=== PATIENT | male | born 1940 | race Hispanic/Latino ===

== ENCOUNTER 2017-08-12 09:51 | Day surgery (SDC) | payer MEDICARE, OTHER ==
[2017-08-12] MEDS ORDERED: Lactated Ringer's 1,000 ML IV ONE (10:21)
[2017-08-12 10:41] VITALS: TEMP 97
[2017-08-12] MEDS ORDERED: Propofol 10 mg/ml Inj (20 ML) ONE (11:20)
[2017-08-12 12:08] VITALS: BP 100/50; PULSE 68; RESP 17; O2SAT 98
== END 2017-08-12 12:23 | disposition home or self-care (01) ==
LOC: H.ENDO 09:51
PROVIDERS: ATTEND Internal Medicine Gastroenterology
DX: K30 Functional dyspepsia (principal); I10 Essential (primary) hypertension; K29.70 Gastritis, unspecified, without bleeding; K31.7 Polyp of stomach and duodenum; K44.9 Diaphragmatic hernia without obstruction or gangrene
CPT/HCPCS: 43239; 88305; J2704; J7120